=== PATIENT | male | born 1980 | race African-American/Black ===

== ENCOUNTER 2016-11-07 07:39 | Emergency (ER) | payer SELFPAY ==
[2016-11-07 07:47] VITALS: BP 138/86
[2016-11-07] MEDS ORDERED: ONDANSETRON 4 MG TAB.RAPDIS PO ONE (08:06)
--- NOTE | 2016-11-07 08:11 | ER Document Report ---
ED General - General Chief Complaint: Rash Stated Complaint: POSSIBLE ALERGIC REACTION TRAVEL OUTSIDE OF THE [place] IN LAST 30 DAYS: No - HPI Patient complains to provider of: itching rash nausea Notes: Patient coming in with a history of HIV states CD4 counts around 300 stitches viral load is undetectable on antiviral medications no changes to his medications states rash developed approximately 24 hours ago this itchy diffuse denies any new detergents new medications new bedsheets new lotions. Patient states he does apply Coconut lotion every day. Patient also states some mild nausea started approximately 24 hours ago as well. Denies vomiting diarrhea abdominal pain chest pain headaches fevers chills no recent travel - Related Data Allergies/Adverse Reactions: dapsone Allergy (Verified 11/07/16 07:44) Sulfa (Sulfonamide Antibiotics) Allergy (Verified 11/07/16 07:44) Past Medical History - Social History Smoking Status: Current Every Day Smoker Chew tobacco use (# tins/day): No Frequency of alcohol use: None Drug Abuse: Marijuana Family History: Hypertension, Other - Anxiety Patient has suicidal ideation: No Patient has homicidal ideation: No Pulmonary Medical History: Reports: Hx Asthma - States had a history as a child GI Medical History: Reports: Hx Gastroesophageal Reflux Disease Musculoskeltal Medical History: Reports Hx Musculoskeletal Trauma - Foot fracture Traumatic Medical History: Reports: Hx Fractures - Foot Infectious Medical History: Reports: Hx HIV Surgical Hx: Negative - Immunizations Immunizations up to date: Yes Hx Diphtheria, Pertussis, Tetanus Vaccination: Yes Review of Systems - Review of Systems Constitutional: No symptoms reported EENT: No symptoms reported Cardiovascular: No symptoms reported Respiratory: No symptoms reported Gastrointestinal: Nausea Genitourinary: No symptoms reported Male Genitourinary: No symptoms reported Musculoskeletal: No symptoms reported Skin: Rash Hematologic/Lymphatic: No symptoms reported Neurological/Psychological: No symptoms reported -: Yes All other systems reviewed and negative Physical Exam - Vital signs Vitals: Temp Pulse Resp BP Pulse Ox 98 F 93 16 138/86 H 97 11/07/16 07:45 11/07/16 07:45 11/07/16 07:45 11/07/16 07:45 11/07/16 07:45 Interpretation: Normal - General General appearance: Appears well, Alert - HEENT Head: Normocephalic, Atraumatic Eyes: Normal Pupils: PERRL - Respiratory Respiratory status: No respiratory distress Chest status: Nontender Breath sounds: Normal Chest palpation: Normal - Cardiovascular Rhythm: Regular Heart sounds: Normal auscultation Murmur: No - Abdominal Inspection: Normal Distension: No distension Bowel sounds: Normal Tenderness: Nontender Organomegaly: No organomegaly - Back Back: Normal, Nontender - Extremities General upper extremity: Normal inspection, Nontender, Normal color, Normal ROM , Normal temperature General lower extremity: Normal inspection, Nontender, Normal color, Normal ROM , Normal temperature, Normal weight bearing. No: Silvia's sign - Neurological Neuro grossly intact: Yes Cognition: Normal Orientation: AAOx4 [place] Coma Scale Eye Opening: Spontaneous [place] Coma Scale Verbal: Oriented [place] Coma Scale Motor: Obeys Commands [place] Coma Scale Total: 15 Speech: Normal Motor strength normal: LUE, RUE, LLE, RLE Sensory: Normal - Psychological Associated symptoms: Normal affect, Normal mood - Skin Skin Temperature: Warm Skin Moisture: Dry - Patient skin is dry however mucous membranes are moist no signs of dehydration. More likely etiology dry skin is due to the cold weather. Skin Color: Normal Course - Re-evaluation Re-evalutation: 11/07/16 08:08 No discernible hives or rash was seen. Patient does have some dry skin on his hands and legs. Possibility this is etiology the patient's itchy rash no concerning etiology seen. Patient will be treated with Benadryl encouraged to use Aveeno lotion also encouraged to use Zofran for nausea will be discharged home. - Vital Signs Vital signs: Temp Pulse Resp BP Pulse Ox 98.0 F 88 16 138/86 H 97 11/07/16 07:46 11/07/16 07:46 11/07/16 07:46 11/07/16 07:46 11/07/16 07:46 Discharge - Discharge Clinical Impression: Dermatitis Condition: Good Disposition: HOME, SELF-CARE Instructions: Contact Dermatitis ([facility]), Atopic Dermatitis (Eczema) ([facility]) Additional Instructions: Your examination is consistent with a dermatitis could be from a contact with allergens such as new soaps or this could be due to the weather and dry skin. I will recommend using good moisturizing lotions. Also he may use Benadryl as prescribed for the itching. Your Tylenol examination is otherwise benign we will give you Zofran for nausea. Return to the ER if symptoms worsen. Prescriptions: Diphenhydramine HCl [Benadryl] 25 - 50 mg PO Q6 PRN #30 capsule PRN Reason: Ondansetron [Zofran Odt 4 mg Tablet] 1 - 2 tab PO Q4H PRN #15 tab.rapdis PRN Reason: For Nausea/Vomiting Forms: Return to Work Referrals: LENY HERRERAP [Primary Care Provider] - Follow up as needed
== END 2016-11-07 08:15 | disposition home or self-care (01) ==
LOC: ER 07:39
DX: L30.9 Dermatitis, unspecified (principal); R21 Rash and other nonspecific skin eruption; R11.0 Nausea; F17.210 Nicotine dependence, cigarettes, uncomplicated; B20 Human immunodeficiency virus [HIV] disease
CPT/HCPCS: 99282; S0119

== ENCOUNTER 2017-03-18 01:39 | Emergency (ER) | payer SELFPAY ==
[2017-03-18 02:01] VITALS: BP 130/82
== END 2017-03-18 05:00 | disposition left against medical advice (07) ==
LOC: ER 01:39
DX: Z53.21 Procedure and treatment not carried out due to patient leaving prior to being seen by health care provider (principal)

== ENCOUNTER 2017-03-18 11:28 | Emergency (ER) | payer SELFPAY ==
[2017-03-18 11:36] VITALS: BP 150/96
== END 2017-03-18 13:58 | disposition left against medical advice (07) ==
LOC: ER 11:28
DX: Z53.21 Procedure and treatment not carried out due to patient leaving prior to being seen by health care provider (principal)

== ENCOUNTER 2018-04-26 03:22 | Emergency (ER) | payer SELFPAY ==
[2018-04-26 03:43] VITALS: BP 128/87
--- NOTE | 2018-04-27 07:49 | EKG REPORT ---
SEVERITY:- NORMAL ECG - SINUS RHYTHM ST ELEV, PROBABLE NORMAL EARLY REPOL PATTERN : Confirmed by: Jada Diallo MD 27-Apr-2018 07:48:34
== END 2018-04-26 05:01 | disposition left against medical advice (07) ==
LOC: ER 03:22
DX: Z53.21 Procedure and treatment not carried out due to patient leaving prior to being seen by health care provider (principal); R07.9 Chest pain, unspecified
CPT/HCPCS: 93005; 93010

== ENCOUNTER 2020-10-25 00:07 | Emergency (ER) | payer SELFPAY ==
[2020-10-25 00:29] VITALS: BP 134/87
--- NOTE | 2020-10-25 02:05 | RADIOLOGY REPORT (SQ) ---
CHEST X-RAY 2 view on 10/25/2020 at 1:48 AM CLINICAL INDICATION: Shortness of breath COMPARISON: 04/18/2016 FINDINGS: The lungs are clear. Cardiac, hilar and mediastinal contours are within normal limits. Pulmonary vascularity is within normal limits. No bony abnormality is noted. IMPRESSION: No active disease.
[2020-10-25 02:35] LABS: ABSOLUTE EOSINOPHILS # (AUTO) 0.3 10^3/uL (0.0-0.6); ABSOLUTE LYMPHOCYTES (AUTO) 1.9 10^3/uL (0.5-4.7); ABSOLUTE MONOCYTES (AUTO) 0.6 10^3/uL (0.1-1.4); ABSOLUTE NEUT (AUTO) 4.4 10^3/uL (1.7-8.2); BASOPHILS % (AUTO) 0.4 % (0-2); EOSINOPHILS % (AUTO) 4.3 % (0-6); HEMATOCRIT 39.2 % (37.9-51.0); LYMPHOCYTES % (AUTO) 26.7 % (13-45); MEAN CORPUSCULAR HEMOGLOBIN 33.7 pg (27.0-33.4); MEAN CORPUSCULAR HGB CONC 35.7 g/dL (32.0-36.0); MEAN CORPUSCULAR VOLUME 94 fl (80-97); MONOCYTES % (AUTO) 8.2 % (3-13); PLATELET COUNT 210 10^3/uL (150-450); RED BLOOD COUNT 4.16 10^6/uL (4.35-5.55); RED CELL DISTRIBUTION WIDTH 13.2 % (11.5-14.0); SEGMENTED NEUTROPHILS % (AUTO) 60.4 % (42-78); TOTAL CELLS COUNTED % (AUTO) 100 %; WHITE BLOOD COUNT 7.3 10^3/uL (4.0-10.5)
[2020-10-25 03:28] LABS: ALKALINE PHOSPHATASE 77 U/L (38-126); ANION GAP 7 (5-19); ASPARTATE AMINO TRANSFERASE 33 U/L (17-59); BILIRUBIN,DIRECT 0.1 mg/dL (0.0-0.4); BILIRUBIN,TOTAL 0.3 mg/dL (0.2-1.3); BLOOD UREA NITROGEN 21 mg/dL (7-20); CALCIUM 9.7 mg/dL (8.4-10.2); CARBON DIOXIDE 29 mmol/L (22-30); CHLORIDE 106 mmol/L (98-107); CREATINE KINASE 138 U/L (55-170); GLUCOSE 94 mg/dL (75-110); POTASSIUM 4.3 mmol/L (3.6-5.0)
[2020-10-25 03:40] LABS: CREATINE KINASE MB 1.16 ng/mL (<4.55)
[2020-10-25 03:41] LABS: TROPONIN I < 0.012 ng/mL
--- NOTE | 2020-10-25 08:36 | EKG REPORT ---
SEVERITY:- ABNORMAL ECG - SINUS RHYTHM LEFT VENTRICULAR HYPERTROPHY ANTERIOR ST ELEVATION, PROBABLY DUE TO LVH : Confirmed by: Apolinar Crawford MD 25-Oct-2020 08:35:14
== END 2020-10-25 05:34 | disposition left against medical advice (07) ==
LOC: ER 00:07
DX: R07.9 Chest pain, unspecified (principal); Z53.21 Procedure and treatment not carried out due to patient leaving prior to being seen by health care provider
CPT/HCPCS: 36415; 71046; 80053; 82550; 82553; 83690; 84484; 85025; 93005; 93010